=== PATIENT | male | born 1935 | race Caucasian/White ===

== ENCOUNTER 2019-11-20 22:11 | Emergency (ER) | payer MEDICARE ==
[2019-11-20] MEDS ORDERED: FEVERALL 650 MG ONE (22:20)
[2019-11-20 22:21] LABS: A-aADO2 193; ABG HEMOGLOBIN 11.4; ABG POTASSIUM 3.5 (3.5-5.1); ABG SITE RIGHT BRACHIAL; ARTERIAL BLD GAS O2 SATURATION 98.5 % (95-100); ARTERIAL BLOOD GAS FIO2 44 %; ARTERIAL BLOOD GAS PCO2 28 mmHg (35-45); ARTERIAL BLOOD GAS PO2 86 mmHg (75-100); ARTERIAL BLOOD GAS pH 7.47 (7.35-7.45); CARBOXYHEMOGLOBIN 1.4 % THgb (0.0-6.9); HCO3- 20.4 (22-28); HGB O2 SAT 95.7 g/dF (94-100); Methhemoglobin 1.3 % (1.4-1.5); paO2 pAO1 0.31
[2019-11-20] MEDS ORDERED: FEVERALL 650 MG PR ONE (22:22)
--- NOTE | 2019-11-20 22:22 | ERPHSYRPT ---
- History of Present Illness Time Seen by Provider: 11/20/19 22:16 Source: patient, EMS Exam Limitations: clinical condition Physician History: pt had fall a week or so ago and also today this evening he collapsed and they called the ambulance and he was in afib and they attempted to cardiovert unsuccessfully and then had resp arrest but has now recovered and can talk and is oriented and with good gasses his is still hypotensive in 90s at HR 130s - seems to be a little weak right leg but passed cincinatti scale earlier - will get CT and x-ray pelvis where bruising is and cxr for fever - Timing/Duration: today Severity: severe Associated Symptoms: syncope Allergies/Adverse Reactions: No Known Drug Allergies Allergy (Unverified 11/20/19 22:39) Home Medications: Apixaban [Eliquis] 2.5 mg PO BID 11/20/19 [History] Metoprolol Tartrate 25 mg [Lopressor 25MG Tab] 25 mg PO BID 11/20/19 [History] - Review of Systems Constitutional: No Fever, No Chills Eyes: No Symptoms Ears, Nose, & Throat: No Symptoms Respiratory: No Cough, No Dyspnea Cardiac: No Chest Pain, No Edema, No Syncope Abdominal/Gastrointestinal: No Abdominal Pain, No Nausea, No Vomiting, No Diarrhea Genitourinary Symptoms: No Dysuria Musculoskeletal: No Back Pain, No Neck Pain Skin: No Rash Neurological: Other (syncope), No Dizziness, No Focal Weakness, No Sensory Changes Psychological: No Symptoms Endocrine: No Symptoms All Other Systems: Reviewed and Negative - Past Medical History Pertinent Past Medical History: Yes - Nursing Vital Signs Nursing Vital Signs: Initial Vital Signs Temperature 102.2 F 11/20/19 22:13 Pulse Rate 120 H 11/20/19 22:13 Respiratory Rate 35 H 11/20/19 22:13 Blood Pressure 94/64 11/20/19 22:13 O2 Sat by Pulse Oximetry 96 11/20/19 22:13 Pain Scale Pain Intensity 0 - Physical Exam General Appearance: no apparent distress, alert Eye Exam: PERRL/EOMI, eyes nml inspection Ears, Nose, Throat Exam: normal ENT inspection, TMs normal, pharynx normal, moist mucous membranes Neck Exam: normal inspection, non-tender, supple, full range of motion Respiratory Exam: normal breath sounds, airway intact, crackles/rales, No respiratory distress Cardiovascular Exam: normal heart sounds, normal peripheral pulses, tachycardia, irregular Gastrointestinal/Abdomen Exam: soft, normal bowel sounds, No tenderness, No mass Rectal Exam: deferred Back Exam: normal inspection, normal range of motion, No CVA tenderness, No vertebral tenderness Extremity Exam: normal inspection, normal range of motion, pelvis stable Neurologic Exam: alert, oriented x 3, cooperative, normal mood/affect, nml cerebellar function, nml station & gait, sensation nml, No motor deficits Skin Exam: normal color, warm, dry, No rash Lymphatic Exam: No adenopathy - Course Nursing assessment & vital signs reviewed: Yes EKG Interpreted by Me: A-fib, Non-specific ST Changes - Radiology Exams Pelvis X-ray Interpretation: Reviewed by me, Other (no obvious fx) Chest X-ray Interpretation: Reviewed by me, Other (interstitial changes ) - CT Exams Head CT Interpretation: Tele-radiologist Report, No/Intracranial Hemorrhag, Other (sq cyst - present for yrs by hx ) Ordered Tests: Active Orders 24 hr Category Date Time Status Doctor Of Podiatry STAT Care 11/20/19 22:24 Active EKG-ER Only STAT Care 11/20/19 22:23 Active IV Insertion STAT Care 11/20/19 22:23 Active Pulse Oximetry (ED) STAT Care 11/20/19 22:23 Active CHEST 1 VIEW (PORTABLE) Stat Exams 11/20/19 22:24 Taken HEAD WITHOUT CONTRAST [CT] Stat Exams 11/20/19 22:30 Taken PELVIS (1 OR 2 VIEWS) Stat Exams 11/20/19 22:32 Taken ARTERIAL BLOOD GASES Stat Lab 11/20/19 22:07 Completed CBC W DIFF Stat Lab 11/20/19 22:25 Completed CMP Stat Lab 11/20/19 22:25 Completed CULTURE,URINE Stat Lab 11/20/19 22:45 Received NT PRO BNP Stat Lab 11/20/19 22:25 Completed TROPONIN Q3H Lab 11/20/19 22:25 Completed TROPONIN Q3H Lab 11/21/19 01:30 Ordered TROPONIN Q3H Lab 11/21/19 04:30 Ordered TROPONIN Q3H Lab 11/21/19 07:30 Ordered TROPONIN Q3H Lab 11/21/19 10:30 Ordered UA W/RFX UR CULTURE Stat Lab 11/20/19 22:45 Completed Medication Summary Discontinued Medications Generic Name Dose Route Start Last Admin Trade Name Quan PRN Reason Stop Dose Admin Acetaminophen 650 mg 11/20/19 22:22 11/20/19 22:23 Feverall 650 Mg MA 11/20/19 22:23 650 mg STAT ONE Administration Acetaminophen Confirm 11/20/19 22:20 Feverall 650 Mg Administered 11/20/19 22:21 Dose 650 mg .ROUTE .STK-MED ONE Diltiazem HCl 5 mg 11/20/19 22:23 11/20/19 22:44 Cardizem Iv 50 Mg/10 Ml IV 11/20/19 22:24 5 mg STAT ONE Administration Diltiazem HCl Confirm 11/20/19 22:31 Cardizem Iv 50 Mg/10 Ml Administered 11/20/19 22:32 Dose 50 mg IV .STK-MED ONE Sodium Chloride 1,000 mls @ 999 mls/hr 11/20/19 22:23 11/20/19 22:34 Sodium Chloride 0.9% 1000 Ml IV 11/20/19 23:23 999 mls/hr .Q1H1M STA Administration Ceftriaxone Sodium/Dextrose 1 g in 50 mls @ 100 mls/hr 11/20/19 22:26 11/20/19 22:35 Rocephin 1 Gm-D5w 50 Ml Bag IV 11/20/19 22:55 100 mls/hr STAT STA 100 mls/hr Administration Sodium Chloride Confirm 11/20/19 22:30 Sodium Chloride 0.9% 1000 Ml Administered 11/20/19 22:31 Dose 1,000 mls @ ud .ROUTE .STK-MED ONE Ceftriaxone Sodium/Dextrose Confirm 11/20/19 22:30 Rocephin 1 Gm-D5w 50 Ml Bag Administered 11/20/19 22:31 Dose 1 g in 50 mls @ ud IV .STK-MED ONE Lab/Rad Data: Laboratory Result Diagrams 11/20/19 22:25 11/20/19 22:25 Laboratory Results 11/20/19 11/20/19 11/20/19 Range/Units 22:45 22:25 22:25 WBC (4.0-10.5) K/mm3 RBC (4.1-5.6) M/mm3 Hgb (12.5-18.0) gm/dl Hct (42-50) % MCV (78-100) fl MCH (26-32) pg MCHC (32-36) g/dl RDW (11.5-14.0) % Plt Count (150-450) K/mm3 MPV (7.5-11.0) fl Gran % (36.0-66.0) % Eos # (Auto) (0-0.5) Absolute Lymphs (auto) (1.0-4.6) Absolute Monos (auto) (0.0-1.3) Lymphocytes % (24.0-44.0) % Monocytes % (0.0-12.0) % Eosinophils % (0.00-5.0) % Basophils % (0.0-0.4) % Absolute Granulocytes (1.4-6.9) Basophils # (0-0.4) Puncture Site pCO2 (35-45) mmHg pO2 (75-100) mmHg Base Excess (-2.0-2.0) O2 Saturation (94-100) g/dF ABG pH (7.35-7.45) ABG HCO3 (22-28) ABG O2 Sat (Measured) (95-100) % Good Test A-a Gradient a/A Ratio Hemoglobin Carboxyhemoglobin (0.0-6.9) % THgb Methemoglobin (1.4-1.5) % Potassium 3.5 (3.5-5.1) Temperature C POC O2 Flow Rate % Sodium 141 (137-145) mmol/L Chloride 115 H (98-107) mmol/L Carbon Dioxide 22 (22-30) mmol/L Anion Gap 8.1 (5-15) MEQ/L BUN 49 H (9-20) mg/dL Creatinine 1.37 H (0.66-1.25) mg/dL Estimated GFR 52.9 ML/MIN Glucose 144 H (74-106) mg/dL Calcium 7.7 L (8.4-10.2) mg/dL Total Bilirubin 1.30 (0.2-1.3) mg/dL AST 139 H (17-59) U/L ALT 53 H (0-50) U/L Alkaline Phosphatase 62 (38-126) U/L Troponin I 0.037 H* (0.000-0.034) ng/mL NT-Pro-B Natriuret Pep 3660 H (0-1800) pg/mL Serum Total Protein 6.1 L (6.3-8.2) g/dL Albumin 2.8 L (3.5-5.0) g/dL Urine Color ANGIE (YELLOW) Urine Appearance CLOUDY (CLEAR) Urine pH 5.0 (5-6) Ur Specific [place] 1.026 (1.005-1.025) Urine Protein 30 (Negative) Urine Ketones NEGATIVE (NEGATIVE) Urine Blood SMALL (0-5) [place]/ul Urine Nitrite NEGATIVE (NEGATIVE) Urine Bilirubin NEGATIVE (NEGATIVE) Urine Urobilinogen 2 (0-1) mg/dL Ur Leukocyte Esterase NEGATIVE (NEGATIVE) Urine WBC (Auto) 3-5 (0-5) /HPF Urine RBC (Auto) NONE (0-2) /HPF U Hyaline Cast (Auto) 3-5 (0-2) /LPF U Epithel Cells (Auto) NONE (FEW) /HPF Urine Bacteria (Auto) FEW (NEGATIVE) /HPF Urine Mucus (Auto) SLIGHT (NEGATIVE) /HPF Urine Culture Reflexed ORDERED SEPARATELY (NO) Urine Glucose NEGATIVE (NEGATIVE) mg/dL Slides for Path Review 11/20/19 11/20/19 Range/Units 22:25 22:07 WBC 3.8 L (4.0-10.5) K/mm3 RBC 3.52 L (4.1-5.6) M/mm3 Hgb 11.0 L (12.5-18.0) gm/dl Hct 33.1 L (42-50) % MCV 94.0 (78-100) fl MCH 31.3 (26-32) pg MCHC 33.2 (32-36) g/dl RDW 15.4 H (11.5-14.0) % Plt Count 79 L (150-450) K/mm3 MPV 14.5 H (7.5-11.0) fl Gran % 61.0 (36.0-66.0) % Eos # (Auto) 0 (0-0.5) Absolute Lymphs (auto) 1.10 (1.0-4.6) Absolute Monos (auto) 0.38 (0.0-1.3) Lymphocytes % 28.8 (24.0-44.0) % Monocytes % 9.9 (0.0-12.0) % Eosinophils % 0.0 (0.00-5.0) % Basophils % 0.3 (0.0-0.4) % Absolute Granulocytes 2.33 (1.4-6.9) Basophils # 0.01 (0-0.4) Puncture Site RIGHT BRACHIAL pCO2 28 L (35-45) mmHg pO2 86 (75-100) mmHg Base Excess -2.0 (-2.0-2.0) O2 Saturation 95.7 (94-100) g/dF ABG pH 7.47 H (7.35-7.45) ABG HCO3 20.4 L (22-28) ABG O2 Sat (Measured) 98.5 (95-100) % Good Test NOT APPLICABLE A-a Gradient 193 a/A Ratio 0.31 Hemoglobin 11.4 Carboxyhemoglobin 1.4 (0.0-6.9) % THgb Methemoglobin 1.3 L (1.4-1.5) % Potassium 3.5 (3.5-5.1) Temperature 37.0 C POC O2 Flow Rate 44 % Sodium (137-145) mmol/L Chloride (98-107) mmol/L Carbon Dioxide (22-30) mmol/L Anion Gap (5-15) MEQ/L BUN (9-20) mg/dL Creatinine (0.66-1.25) mg/dL Estimated GFR ML/MIN Glucose (74-106) mg/dL Calcium (8.4-10.2) mg/dL Total Bilirubin (0.2-1.3) mg/dL AST (17-59) U/L ALT (0-50) U/L Alkaline Phosphatase (38-126) U/L Troponin I (0.000-0.034) ng/mL NT-Pro-B Natriuret Pep (0-1800) pg/mL Serum Total Protein (6.3-8.2) g/dL Albumin (3.5-5.0) g/dL Urine Color (YELLOW) Urine Appearance (CLEAR) Urine pH (5-6) Ur Specific [place] (1.005-1.025) Urine Protein (Negative) Urine Ketones (NEGATIVE) Urine Blood (0-5) [place]/ul Urine Nitrite (NEGATIVE) Urine Bilirubin (NEGATIVE) Urine Urobilinogen (0-1) mg/dL Ur Leukocyte Esterase (NEGATIVE) Urine WBC (Auto) (0-5) /HPF Urine RBC (Auto) (0-2) /HPF U Hyaline Cast (Auto) (0-2) /LPF U Epithel Cells (Auto) (FEW) /HPF Urine Bacteria (Auto) (NEGATIVE) /HPF Urine Mucus (Auto) (NEGATIVE) /HPF Urine Culture Reflexed (NO) Urine Glucose (NEGATIVE) mg/dL Slides for Path Review YES - Progress Progress: improved, re-examined Progress Note: 11/20/19 23:40 discussed with Kole Hernandez at [facility] and will transfer - he accepts for definitive w/u and care Discussed with : Other (dr Sharif) Will see patient in: ED Counseled pt/family regarding: lab results, diagnosis, need for follow-up, rad results - Departure Departure Disposition: Transfer Clinical Impression: A-fib, Fever due to infection, Elevated troponin Condition: Critical Critical Care Time: Yes Critical Care Time(excluding separately billable procedures): Critical 30-74 mins (hypotensive with possible sepsis- elevated trops- afib)
[2019-11-20] MEDS ORDERED: Sodium Chloride 0.9% 1000 ML 1,000 ML IV STA (22:23)
[2019-11-20] MEDS ORDERED: Cardizem IV 50 MG/10 ML IV ONE ×2 (22:23→22:31)
[2019-11-20] MEDS ORDERED: ROCEPHIN 1 Gm-D5w 50 ml Bag** 1 G/50 ML IVPB IV STA (22:26)
[2019-11-20 22:30] LABS: Absolute Neutrophil Ct (ANC) 2.33 (1.4-6.9); BASOPHIL % 0.3 % (0.0-0.4); Basophil (Absolute #) 0.01 (0-0.4); Eosinophil (Absolute #) 0 (0-0.5); Hematocrit 33.1 % (42-50); Lymphocytes % 28.8 % (24.0-44.0); Mean Corpuscular Hemoglobin 31.3 pg (26-32); Mean Corpuscular Hgb Concent. 33.2 g/dl (32-36); Mean Platelet Volume 14.5 fl (7.5-11.0); Monocyte (Absolute #) 0.38 (0.0-1.3); Monocytes % 9.9 % (0.0-12.0); Platelet Count 79 K/mm3 (150-450); Red Blood Count 3.52 M/mm3 (4.1-5.6); Red Cell Distribution Width 15.4 % (11.5-14.0); White Blood Count 3.8 K/mm3 (4.0-10.5)
[2019-11-20] MEDS ORDERED: ROCEPHIN 1 Gm-D5w 50 ml Bag** 1 G/50 ML IVPB IV ONE (22:30)
[2019-11-20] MEDS ORDERED: Sodium Chloride 0.9% 1000 ML 1,000 ML ONE (22:30)
[2019-11-20 22:46] VITALS: O2SAT 98
[2019-11-20 22:46] LABS: ALBUMIN 2.8 g/dL (3.5-5.0); ANION GAP 8.1 MEQ/L (5-15); BILIRUBIN,TOTAL 1.3 mg/dL (0.2-1.3); Calcium 7.7 mg/dL (8.4-10.2); Creatinine 1 1.37 mg/dL (0.66-1.25); Potassium 3.5 mmol/L (3.5-5.1); Total Protein 6.1 g/dL (6.3-8.2)
[2019-11-20 22:56] LABS: Appearance CLOUDY (CLEAR); Bacteria FEW /HPF (NEGATIVE); Bilirubin NEGATIVE (NEGATIVE); Blood SMALL Ery/ul (0-5); Glucose NEGATIVE (NEGATIVE); Ketones NEGATIVE (NEGATIVE); Leukocyte Esterase NEGATIVE (NEGATIVE); Mucus SLIGHT /HPF (NEGATIVE); Nitrite NEGATIVE (NEGATIVE); Protein,Urine Dip 30 (Negative); Specific Gravity 1.026 (1.005-1.025); Urobilinogen 2 mg/dL (0-1)
[2019-11-20 23:14] LABS: Slide Review 1 YES
[2019-11-20 23:43] VITALS: BP 111/67; PULSE 102
--- NOTE | 2019-11-21 07:39 | XRAY ---
Indication: Fever. Status post fall. Comparison: None Portable chest inflated and clear with incidental calcified granulomas. Heart is not enlarged with small hiatal hernia. Bony thorax intact with mild osteopenia and degenerative changes. Impression: Nonacute chest with chronic features.
--- NOTE | 2019-11-21 07:41 | XRAY ---
Indication: Fever. Status post fall. Impression: No Single AP pelvis demonstrates mild osteopenia, moderate lower lumbar degenerative spondylosis, right pelvic phlebolith, minimal scattered vascular calcifications, and Suarez catheter in situ. No other bony, articular, or soft tissue abnormalities.
--- NOTE | 2019-11-21 07:43 | XRAY ---
Indication: Status post fall. Acute mental status change, fever, and weakness. Multiple contiguous axial images obtained through the head without contrast. Comparison: None Age-appropriate global atrophy and moderate periventricular degenerative micro-ischemia bilaterally. No acute intracranial hemorrhage, abnormal extra-axial fluid collection, or mass effect. Fourth ventricle is midline without hydrocephalus. Bony calvarium intact. 3 cm left occipital scalp minimally calcified sebaceous cyst. 9 mm right maxillary sinus polyp/retention cyst. Remaining visualized paranasal sinuses and mastoid air cells are clear. Impression: Nonacute senile brain with incidental chronic features. Comment: Preliminary interpretation was made by [facility]. No critical discrepancy.
== END 2019-11-20 23:58 | disposition short-term general hospital (02) ==
LOC: ED 22:11
DX: I48.91 Unspecified atrial fibrillation (principal); R50.9 Fever, unspecified; R74.8 Abnormal levels of other serum enzymes
CPT/HCPCS: 36000; 36415; 36600; 70450; 71045; 72170; 80053; 81001; 82375; 82803; 83880; 84484; 85025; 87086; 93005; 93041; 94760; 96365; 96374; 99285; 99291; J0696; A9270-GY